=== PATIENT | male | born 1990 | race Caucasian/White ===

== ENCOUNTER 2017-08-14 16:57 | Inpatient (IN) | payer BC ==
[2017-08-14 19:31] VITALS: BP 133/82
[2017-08-14 20:03] VITALS: BP 133/82
[2017-08-14] MEDS ORDERED: WELLBUTRIN XL300 MG PO (21:12)
[2017-08-14] MEDS ORDERED: ZOLOFT50 MG PO (21:14)
[2017-08-14] MEDS ORDERED: OXYCODONE HCL10 MG PO (21:19)
[2017-08-14] MEDS ORDERED: MESALAMINE1.2 GM PO (21:20)
[2017-08-14] MEDS ORDERED: MERCAPTOPURINE50 MG PO (21:22)
[2017-08-15 08:51] VITALS: BP 123/70
[2017-08-15 15:39] VITALS: BP 138/80
[2017-08-16 08:14] VITALS: BP 116/66
[2017-08-16 15:52] VITALS: BP 143/74
[2017-08-17 07:50] VITALS: BP 139/96
[2017-08-17 15:41] VITALS: BP 126/79
[2017-08-18 07:55] VITALS: BP 113/77
[2017-08-18] MEDS ORDERED: RISPERDAL2 MG PO (09:10)
[2017-08-18] MEDS ORDERED: BUPROPION XL150 MG PO (09:10)
[2017-08-18] MEDS ORDERED: DEPAKOTE ER250 MG PO (09:10)
[2017-08-18] MEDS ORDERED: OXYCODONE HCL5 MG PO (09:48)
[2017-08-18 15:46] VITALS: BP 135/80
== END 2017-08-18 18:23 | disposition home or self-care (01) | DRG 885 ==
LOC: 1WEST 16:57 → ENRESERV 16:58 → 1WEST 19:21
DX: F29 Unspecified psychosis not due to a substance or known physiological condition (principal); F12.10 Cannabis abuse, uncomplicated; F32.9 Major depressive disorder, single episode, unspecified; F41.9 Anxiety disorder, unspecified; Z88.0 Allergy status to penicillin; Z88.2 Allergy status to sulfonamides; Z79.891 Long term (current) use of opiate analgesic
CPT/HCPCS: 84443; 97165 GO; Q0177